=== PATIENT | male | born 1980 | race Caucasian/White ===

== ENCOUNTER 2020-10-09 07:54 | Inpatient (IN) | payer BC ==
[2020-10-09] MEDS ORDERED: Dexamethasone 10 MG/ML VIAL ONE (08:45)
[2020-10-09 08:54] LABS: #Basophils 0.1 10x3/uL (0.0-0.2); %Basophils 0.4 % (0.0-2.0); %Eosinophils 0.1 % (0.0-6.0); %Lymphocytes 15.8 % (18.0-47.0); %Neutrophils 75.3 % (40.0-75.0); Hemoglobin 16.1 g/dL (13.5-17.5); Mean Corpuscular HGB CONC 32.9 g/dL (32.0-36.0); Mean Corpuscular Hemoglobin 29.5 pg (27.0-33.0); Mean Corpuscular Volume 89.7 fl (81.2-95.1); Platelet Count 273 10x3/uL (150-450); RBC Distribution Width 14.5 % (11.5-14.5); Red Blood Cell (RBC) Count 5.45 10x6/uL (4.32-5.72); White Blood Cell (WBC) Count 15.9 10x3/uL (3.5-10.5)
[2020-10-09 09:05] LABS: D-Dimer Test 0.83 mg/L FEU (0.19-0.50); INR-International Normal Ratio 0.9; PTT 23.4 sec (22.0-33.0); Prothrombin Time 10.4 sec (9.5-12.1)
[2020-10-09 09:06] LABS: ALT (SGPT) 156 U/L (8-55); AST (SGOT) 65 U/L (5-34); Albumin 3.5 g/dL (3.5-5.0); Alkaline Phosphatase 86 U/L (40-110); Anion Gap 15 mmol/L (10-20); BUN (Urea Nitrogen) 18 mg/dL (8.9-20.6); Bilirubin, Total 0.7 mg/dL (0.2-1.2); Calc. Creatinine Clearance 0 mL/min (70-130); Calcium 9.5 mg/dL (7.8-10.44); Carbon Dioxide 25 mmol/L (22-29); Chloride 102 mmol/L (98-107); Globulin 3.2 g/dL (2.4-3.5); Glucose 98 mg/dL (70-105); Potassium 4.1 mmol/L (3.5-5.1); Protein, Total 6.7 g/dL (6.0-8.3); Sodium 138 mmol/L (136-145)
[2020-10-09] MEDS ORDERED: Piperacillin/Tazobactam 4.5 GM VIAL ONE (10:33)
[2020-10-09] MEDS ORDERED: Ondansetron PF 4 MG/2 ML Vial IVP PRN (12:46)
[2020-10-09] MEDS ORDERED: Ventolin HFA Inhaler 60 PUFF INHALER INH PRN (12:52)
[2020-10-09] MEDS ORDERED: Enoxaparin Sodium 100 MG/ML SYRINGE SC SCH (21:00)
[2020-10-09] MEDS: Acetaminophen 325 MG TAB PO PRN (21:19)
[2020-10-09] MEDS: Cefepime 1 GM in Sodium Chloride 0.9% 100 ML IVPB SCH (22:17)
[2020-10-09 22:20] VITALS: BMI 34.7
[2020-10-09] MEDS: VANCOMYCIN 1.25 GM/250 ML BAG 1.25 GM in Premix Bag 1 BAG IVPB SCH (23:42)
[2020-10-09] MEDS: Enoxaparin Sodium 100 MG/ML SYRINGE SC SCH (23:42)
[2020-10-10] MEDS: Enoxaparin Sodium 100 MG/ML SYRINGE SC SCH (00:21)
[2020-10-10 05:06] LABS: #Basophils 0.1 10x3/uL (0.0-0.2); #Eosinphils 0.1 10x3/uL (0.0-0.5); #Monocytes 1.3 10x3/uL (0.0-1.1); #Neutrophils 10.6 10x3/uL (1.5-8.4); %Basophils 0.5 % (0.0-2.0); %Eosinophils 0.3 % (0.0-6.0); %Lymphocytes 20.3 % (18.0-47.0); %Neutrophils 67.8 % (40.0-75.0); Hemoglobin 15.2 g/dL (13.5-17.5); Mean Corpuscular Hemoglobin 29.7 pg (27.0-33.0); Mean Platelet Volume 9.4 fl (7.4-10.4); Platelet Count 271 10x3/uL (150-450); RBC Distribution Width 14.5 % (11.5-14.5); Red Blood Cell (RBC) Count 5.11 10x6/uL (4.32-5.72); White Blood Cell (WBC) Count 15.7 10x3/uL (3.5-10.5)
[2020-10-10 05:17] LABS: ALT (SGPT) 172 U/L (8-55); AST (SGOT) 77 U/L (5-34); Albumin 3.2 g/dL (3.5-5.0); Alkaline Phosphatase 85 U/L (40-110); Anion Gap 12 mmol/L (10-20); BUN (Urea Nitrogen) 20 mg/dL (8.9-20.6); Bilirubin, Total 0.8 mg/dL (0.2-1.2); Calc. Creatinine Clearance 193 mL/min (70-130); Calcium 9.4 mg/dL (7.8-10.44); Carbon Dioxide 24 mmol/L (22-29); Chloride 105 mmol/L (98-107); Globulin 3.3 g/dL (2.4-3.5); Glucose 84 mg/dL (70-105); Potassium 4.3 mmol/L (3.5-5.1); Protein, Total 6.5 g/dL (6.0-8.3); Sodium 137 mmol/L (136-145)
[2020-10-10] MEDS ORDERED: HYDROcodone/Acetaminophen 5/325 mg Tablet PO PRN (07:50)
[2020-10-10] MEDS ORDERED: Hydrocerin (Eucerin) Cream 120 gm Jar TOP PRN (07:50)
[2020-10-10] MEDS ORDERED: Zolpidem Tartrate 5 MG TAB PO PRN (07:50)
[2020-10-10] MEDS ORDERED: GUAIFENESIN SF SOLN 200 MG/10 ML UDCUP PO PRN (07:50)
[2020-10-10] MEDS ORDERED: Loratadine 10 MG TAB PO PRN (07:50)
[2020-10-10] MEDS ORDERED: Artificial Tear Sol 15 ML BOT EA EYE PRN (07:50)
[2020-10-10] MEDS ORDERED: hydrALAZINE 20 MG/ML VIAL SLOW IVP PRN (07:50)
[2020-10-10] MEDS ORDERED: Loperamide HCl 2 MG CAP PO PRN (07:50)
[2020-10-10] MEDS ORDERED: Senokot S 8.6-50 MG TAB PO PRN (07:50)
[2020-10-10] MEDS ORDERED: Sodium Chloride 0.65% Nasal 44 ML BOT EA NARE PRN (07:50)
[2020-10-10] MEDS ORDERED: Calcium Carbonate 500 MG ChewTAB PO PRN (07:50)
[2020-10-10] MEDS ORDERED: Bisacodyl 5 MG TAB PO PRN (07:50)
[2020-10-10] MEDS ORDERED: Cepastat Lozenges 1 LOZ PO PRN (07:50)
[2020-10-10] MEDS ORDERED: Benzonatate 100 MG CAP PO PRN (07:50)
[2020-10-10] MEDS ORDERED: Ondansetron ODT 4 MG TAB PO PRN (07:50)
[2020-10-10] MEDS ORDERED: Fluticasone Propionate Nasal Spray 16 gm Bottle NASAL PRN (07:52)
[2020-10-10] MEDS: Cefepime 1 GM in Sodium Chloride 0.9% 100 ML IVPB SCH ×2 (08:52→20:19)
[2020-10-10] MEDS: Enoxaparin Sodium 40 MG/0.4 ML SYRINGE SC SCH ×2 (08:52→20:20)
[2020-10-10] MEDS: VANCOMYCIN 1.25 GM/250 ML BAG 1.25 GM in Premix Bag 1 BAG IVPB SCH ×3 (08:52→23:29)
[2020-10-10] MEDS: Ascorbic Acid 500 mg Chewable Tablet PO SCH (08:52)
[2020-10-10] MEDS: Zinc Sulfate 220 MG CAP PO SCH (08:54)
[2020-10-10] MEDS ORDERED: Dexamethasone 6 MG in Sodium Chloride 0.9% 50 ML IVPB SCH (09:00)
[2020-10-10] MEDS ORDERED: Enoxaparin Sodium 100 MG/ML SYRINGE SC SCH (09:00)
[2020-10-10] MEDS: Dexamethasone Sod Phosphate 6 MG in Sodium Chloride 0.9% 50 ML IVPB SCH (12:50)
[2020-10-10 23:40] LABS: Vancomycin, Trough 12.6 ug/mL
[2020-10-11 06:56] LABS: #Basophils 0.1 10x3/uL (0.0-0.2); #Monocytes 1.2 10x3/uL (0.0-1.1); %Basophils 0.5 % (0.0-2.0); %Eosinophils 0.3 % (0.0-6.0); %Lymphocytes 12.6 % (18.0-47.0); %Monocytes 7.9 % (0.0-10.0); %Neutrophils 75.5 % (40.0-75.0); Hemoglobin 15.1 g/dL (13.5-17.5); Mean Corpuscular HGB CONC 33.3 g/dL (32.0-36.0); Mean Corpuscular Hemoglobin 29.8 pg (27.0-33.0); Mean Corpuscular Volume 89.7 fl (81.2-95.1); Mean Platelet Volume 9.3 fl (7.4-10.4); Platelet Count 263 10x3/uL (150-450); RBC Distribution Width 14.1 % (11.5-14.5); Red Blood Cell (RBC) Count 5.06 10x6/uL (4.32-5.72); White Blood Cell (WBC) Count 14.6 10x3/uL (3.5-10.5)
[2020-10-11 07:13] LABS: ALT (SGPT) 164 U/L (8-55); AST (SGOT) 62 U/L (5-34); Albumin 3.1 g/dL (3.5-5.0); Alkaline Phosphatase 106 U/L (40-110); Anion Gap 16 mmol/L (10-20); BUN (Urea Nitrogen) 17 mg/dL (8.9-20.6); CRP (Inflammatory) 24.58 mg/dL (= or < 0.5); Calc. Creatinine Clearance 204 mL/min (70-130); Calcium 9.7 mg/dL (7.8-10.44); Carbon Dioxide 21 mmol/L (22-29); Chloride 104 mmol/L (98-107); Globulin 3.6 g/dL (2.4-3.5); Glucose 80 mg/dL (70-105); Potassium 4.3 mmol/L (3.5-5.1); Protein, Total 6.7 g/dL (6.0-8.3); Sodium 137 mmol/L (136-145)
[2020-10-11] MEDS: Enoxaparin Sodium 40 MG/0.4 ML SYRINGE SC SCH ×2 (08:35→20:46)
[2020-10-11] MEDS: Cefepime 1 GM in Sodium Chloride 0.9% 100 ML IVPB SCH ×2 (08:35→20:46)
[2020-10-11] MEDS: Zinc Sulfate 220 MG CAP PO SCH (08:35)
[2020-10-11] MEDS: Ascorbic Acid 500 mg Chewable Tablet PO SCH (08:35)
[2020-10-11] MEDS: Acetaminophen 325 MG TAB PO PRN ×2 (09:00→14:17)
[2020-10-11] MEDS: Dexamethasone Sod Phosphate 6 MG in Sodium Chloride 0.9% 50 ML IVPB SCH (12:51)
[2020-10-12] MEDS ORDERED: Sodium Bicarb 50 MEQ/50 ML VIAL IVP SCH (01:00)
[2020-10-12] MEDS: Acetaminophen 325 MG TAB PO PRN ×3 (04:34→20:13)
[2020-10-12 05:44] LABS: #Basophils 0.1 10x3/uL (0.0-0.2); #Monocytes 1.2 10x3/uL (0.0-1.1); #Neutrophils 8.6 10x3/uL (1.5-8.4); %Basophils 0.7 % (0.0-2.0); %Eosinophils 0.3 % (0.0-6.0); %Lymphocytes 12.1 % (18.0-47.0); %Monocytes 10.4 % (0.0-10.0); %Neutrophils 72.6 % (40.0-75.0); Hemoglobin 14.5 g/dL (13.5-17.5); Mean Corpuscular Hemoglobin 29.8 pg (27.0-33.0); Mean Corpuscular Volume 87.7 fl (81.2-95.1); Mean Platelet Volume 9.3 fl (7.4-10.4); Platelet Count 311 10x3/uL (150-450); Red Blood Cell (RBC) Count 4.87 10x6/uL (4.32-5.72); White Blood Cell (WBC) Count 11.9 10x3/uL (3.5-10.5)
[2020-10-12 06:06] LABS: ALT (SGPT) 143 U/L (8-55); AST (SGOT) 49 U/L (5-34); Alkaline Phosphatase 109 U/L (40-110); Anion Gap 12 mmol/L (10-20); BUN (Urea Nitrogen) 18 mg/dL (8.9-20.6); Bilirubin, Total 0.6 mg/dL (0.2-1.2); Calc. Creatinine Clearance 190 mL/min (70-130); Calcium 9.7 mg/dL (7.8-10.44); Carbon Dioxide 26 mmol/L (22-29); Chloride 104 mmol/L (98-107); Globulin 3.9 g/dL (2.4-3.5); Glucose 100 mg/dL (70-105); Magnesium 2.4 mg/dL (1.6-2.6); Potassium 4.3 mmol/L (3.5-5.1); Protein, Total 6.9 g/dL (6.0-8.3); Sodium 138 mmol/L (136-145)
[2020-10-12] MEDS: Cefepime 1 GM in Sodium Chloride 0.9% 100 ML IVPB SCH ×2 (08:22→20:54)
[2020-10-12] MEDS: Enoxaparin Sodium 40 MG/0.4 ML SYRINGE SC SCH ×2 (08:23→20:54)
[2020-10-12] MEDS: Ascorbic Acid 500 mg Chewable Tablet PO SCH (08:23)
[2020-10-12] MEDS: Zinc Sulfate 220 MG CAP PO SCH (08:23)
[2020-10-12] MEDS: Dexamethasone Sod Phosphate 6 MG in Sodium Chloride 0.9% 50 ML IVPB SCH (12:17)
[2020-10-13] MEDS: Acetaminophen 325 MG TAB PO PRN ×3 (00:33→20:28)
[2020-10-13 07:19] LABS: #Basophils 0.1 10x3/uL (0.0-0.2); #Eosinphils 0.2 10x3/uL (0.0-0.5); #Monocytes 1.7 10x3/uL (0.0-1.1); #Neutrophils 10.6 10x3/uL (1.5-8.4); %Basophils 0.5 % (0.0-2.0); %Lymphocytes 13.3 % (18.0-47.0); %Monocytes 11.5 % (0.0-10.0); %Neutrophils 69.8 % (40.0-75.0); Hemoglobin 14.4 g/dL (13.5-17.5); Mean Corpuscular HGB CONC 33.6 g/dL (32.0-36.0); Mean Corpuscular Hemoglobin 29.8 pg (27.0-33.0); Mean Corpuscular Volume 88.4 fl (81.2-95.1); Mean Platelet Volume 9.2 fl (7.4-10.4); Platelet Count 346 10x3/uL (150-450); RBC Distribution Width 14.4 % (11.5-14.5); Red Blood Cell (RBC) Count 4.84 10x6/uL (4.32-5.72); White Blood Cell (WBC) Count 15.2 10x3/uL (3.5-10.5)
[2020-10-13 07:31] LABS: Anion Gap 12 mmol/L (10-20); BUN (Urea Nitrogen) 20 mg/dL (8.9-20.6); CRP (Inflammatory) 13.27 mg/dL (= or < 0.5); Calc. Creatinine Clearance 206 mL/min (70-130); Calcium 9.6 mg/dL (7.8-10.44); Carbon Dioxide 25 mmol/L (22-29); Chloride 106 mmol/L (98-107); Glucose 88 mg/dL (70-105); Potassium 4.3 mmol/L (3.5-5.1); Sodium 139 mmol/L (136-145)
[2020-10-13] MEDS: Cefepime 1 GM in Sodium Chloride 0.9% 100 ML IVPB SCH ×2 (08:55→20:09)
[2020-10-13] MEDS: Ascorbic Acid 500 mg Chewable Tablet PO SCH (08:57)
[2020-10-13] MEDS: Zinc Sulfate 220 MG CAP PO SCH (08:57)
[2020-10-13] MEDS: Enoxaparin Sodium 40 MG/0.4 ML SYRINGE SC SCH ×2 (08:57→20:10)
[2020-10-13] MEDS: Dexamethasone Sod Phosphate 6 MG in Sodium Chloride 0.9% 50 ML IVPB SCH (13:33)
[2020-10-14] MEDS: Acetaminophen 325 MG TAB PO PRN ×3 (03:52→19:23)
[2020-10-14 09:01] LABS: #Basophils 0.1 10x3/uL (0.0-0.2); #Eosinphils 0.2 10x3/uL (0.0-0.5); #Monocytes 1.4 10x3/uL (0.0-1.1); #Neutrophils 8.2 10x3/uL (1.5-8.4); %Basophils 0.4 % (0.0-2.0); %Eosinophils 1.7 % (0.0-6.0); %Lymphocytes 18.5 % (18.0-47.0); %Monocytes 11.3 % (0.0-10.0); %Neutrophils 64.9 % (40.0-75.0); Hemoglobin 14.6 g/dL (13.5-17.5); Mean Corpuscular HGB CONC 33.1 g/dL (32.0-36.0); Mean Corpuscular Hemoglobin 29.6 pg (27.0-33.0); Mean Corpuscular Volume 89.5 fl (81.2-95.1); Mean Platelet Volume 9.4 fl (7.4-10.4); Platelet Count 403 10x3/uL (150-450); RBC Distribution Width 14.3 % (11.5-14.5); Red Blood Cell (RBC) Count 4.93 10x6/uL (4.32-5.72); White Blood Cell (WBC) Count 12.7 10x3/uL (3.5-10.5)
[2020-10-14] MEDS: Ascorbic Acid 500 mg Chewable Tablet PO SCH (09:01)
[2020-10-14] MEDS: Enoxaparin Sodium 40 MG/0.4 ML SYRINGE SC SCH ×2 (09:01→20:44)
[2020-10-14] MEDS: Cefepime 1 GM in Sodium Chloride 0.9% 100 ML IVPB SCH ×2 (09:01→20:44)
[2020-10-14] MEDS: Zinc Sulfate 220 MG CAP PO SCH (09:03)
[2020-10-14] MEDS: Dexamethasone Sod Phosphate 6 MG in Sodium Chloride 0.9% 50 ML IVPB SCH (12:55)
[2020-10-15 06:23] LABS: #Basophils 0.1 10x3/uL (0.0-0.2); #Eosinphils 0.1 10x3/uL (0.0-0.5); #Monocytes 1.8 10x3/uL (0.0-1.1); #Neutrophils 8.1 10x3/uL (1.5-8.4); %Basophils 0.7 % (0.0-2.0); %Lymphocytes 19.4 % (18.0-47.0); %Monocytes 13.4 % (0.0-10.0); %Neutrophils 61.5 % (40.0-75.0); Mean Corpuscular HGB CONC 33.2 g/dL (32.0-36.0); Mean Corpuscular Hemoglobin 29.6 pg (27.0-33.0); Mean Corpuscular Volume 89.3 fl (81.2-95.1); Mean Platelet Volume 9.4 fl (7.4-10.4); Platelet Count 453 10x3/uL (150-450); RBC Distribution Width 14.4 % (11.5-14.5); Red Blood Cell (RBC) Count 5.06 10x6/uL (4.32-5.72); White Blood Cell (WBC) Count 13.2 10x3/uL (3.5-10.5)
[2020-10-15 06:36] LABS: Anion Gap 14 mmol/L (10-20); BUN (Urea Nitrogen) 21 mg/dL (8.9-20.6); Calc. Creatinine Clearance 183 mL/min (70-130); Calcium 10.1 mg/dL (7.8-10.44); Carbon Dioxide 24 mmol/L (22-29); Chloride 105 mmol/L (98-107); Glucose 98 mg/dL (70-105); Sodium 139 mmol/L (136-145)
[2020-10-15] MEDS: Cefepime 1 GM in Sodium Chloride 0.9% 100 ML IVPB SCH (09:10)
[2020-10-15] MEDS: Enoxaparin Sodium 40 MG/0.4 ML SYRINGE SC SCH (09:10)
[2020-10-15] MEDS: Zinc Sulfate 220 MG CAP PO SCH (09:10)
[2020-10-15] MEDS: Ascorbic Acid 500 mg Chewable Tablet PO SCH (09:10)
[2020-10-15] MEDS: Dexamethasone Sod Phosphate 6 MG in Sodium Chloride 0.9% 50 ML IVPB SCH (12:09)
[2020-10-15 13:55] VITALS: BP 105/73; TEMP 98.5
[2020-10-16] MEDS ORDERED: Dexamethasone 4 mg/ml Vial SLOW IVP SCH (09:00)
== END 2020-10-15 16:38 | disposition home or self-care (01) | DRG 177 ==
LOC: CSHERS 07:54 → CSHERHOLD 12:12 → OBSVTOIN 12:46 → CSHTELE 19:55
PROVIDERS: ADMIT Internal Medicine; ATTEND Hospitalist
PROC: 8E0ZXY6 Isolation (ICD-10-PCS; principal; 2020-10-09)
DX: U07.1 COVID-19 (principal); J12.82 Pneumonia due to coronavirus disease 2019; J96.01 Acute respiratory failure with hypoxia; E74.01 von Gierke disease; E66.9 Obesity, unspecified; Z68.34 Body mass index [BMI] 34.0-34.9, adult
CPT/HCPCS: 36415; 71045; 71275; 80048; 80053; 80202; 82728; 83605; 83735; 83880; 84145; 84484; 85025; 85379; 85610; 85730; 86140; 87040; 93005; 94760; 96365; 96366; 96368; 96375; G0378; J0692; J1100; J1650; J2543; J3370; J3490

== ENCOUNTER → 2022-06-05 | Emergency (ER) | payer BC, OTHER | LOC: CSHERS 12:15 | DX: H81.399 Other peripheral vertigo, unspecified ear (principal); F17.220 Nicotine dependence, chewing tobacco, uncomplicated | CPT/HCPCS: 93005 ==